=== PATIENT | female | born 1975 | race Caucasian/White ===

== ENCOUNTER → 2020-01-20 07:08 | Outpatient (CLI) | payer BC, SELFPAY ==
[2019-12-29 13:32] VITALS: BMI 21.7
--- NOTE | 2020-01-20 07:10 | NM_ITS ---
STUDY: NUCLEAR MEDICINE RADIOPHARMACEUTICAL THERAPY REASON FOR EXAM: Female, 44 years old. GRAVES DISEASE -- NEG PREG TEST TODAY TECHNIQUE: The patient ingested 13 mCi of iodine-131 for Graves'' disease. COMPARISON: None. FINDINGS: The patient ingested 13 mCi of iodine-131 for Graves'' disease. NM/Therapy I-131 IMPRESSION: The patient ingested 13 mCi of iodine 131 for Graves'' disease. Electronically Signed: Frankie Crespo, at 8:14 EDT , Service support ,
[2020-01-20 07:39] LABS: Internal QC Validated? YES +Cl - CLEAR BKGD; Pregnancy, Urine Negative Negative
== END ==
PROVIDERS: PCP Family Medicine; Referring Provider Internal Medicine Endocrinology, Diabetes & Metabolism; Visit Provider Internal Medicine Endocrinology, Diabetes & Metabolism
DX: E05.90 Thyrotoxicosis, unspecified without thyrotoxic crisis or storm (principal)
CPT/HCPCS: 79005; 81025; A9517